=== PATIENT | female | born 1930 | race Caucasian/White ===

== ENCOUNTER 2019-04-06 14:06 | Emergency (ER) | payer MEDICARE, BC ==
[2019-04-06 14:31] VITALS: BP 148/70
--- NOTE | 2019-04-06 15:04 | UC ---
Dizzy HPI HPI Summary: C/O dizzy episodes starting this morning. Worse being upright. No SOB or Chest pain. More lightheaded, not spinning. Episodes last a few seconds, better sitting down or lying down. - History Of Current Complaint Chief Complaint: UCDizziness Stated Complaint: VERTIGO Time Seen by Provider: 04/06/19 14:35 Hx Obtained From: Patient Onset/Duration: Sudden Onset, Lasting Days - 1 Timing: Seconds - last a few seconds. Severity Initially: Mild Severity Currently: None Pain Intensity: 0 Character: Lightheaded, Weak, Dizzy Aggravating Factor(s): Position Change, Supine To Erect Alleviating Factor(s): Rest, Lying Down Associated Signs And Symptoms: Positive: Negative - Risk Factors Cardiac Risk Factors: Hypertension CVA Risk Factor: Hypertension, Prior CVA/TIA - Allergies/Home Medications Allergies/Adverse Reactions: Allergies Allergy/AdvReac Type Severity Reaction Status Date / Time meperidine [From Demerol] Allergy Hives Verified 04/06/19 14:18 Penicillins Allergy Hives Verified 04/06/19 14:18 Sulfa (Sulfonamide Allergy Hives Verified 04/06/19 14:18 Antibiotics) Home Medications: Home Medications Acetaminophen/Diphenhydramine [Tylenol Pm Ex-Strength Caplet] 2 each PO BEDTIME PRN 04/06/19 [History Confirmed 04/06/19] Apixaban* [Eliquis*] 2.5 mg PO BID 04/06/19 [History Confirmed 04/06/19] Cranberry Fruit Concentrate [Azo Cranberry] 500 mg PO DAILY 04/06/19 [History Confirmed 04/06/19] Levothyroxine Sodium [Levoxyl] 50 mcg PO DAILY 04/06/19 [History Confirmed 04/06] Lisinopril TAB* [Prinivil TAB 10 MG*] 40 mg PO DAILY 04/06/19 [History Confirmed 04/06/19] Nadolol TAB* [Corgard TAB*] 40 mg PO DAILY 04/06/19 [History Confirmed 04/06/19] Ropinirole TAB* [Requip TAB*] 0.25 mg PO DAILY 04/06/19 [History Confirmed 04/06] Solifenacin Succinate 5 mg PO DAILY 04/06/19 [History Confirmed 04/06/19] PMH/Surg Hx/FS Hx/Imm Hx Endocrine History: Hypothyroidism Cardiovascular History: Hypertension Neurological History: TIA, CVA - Surgical History Surgical History: Yes Surgery Procedure, Year, and Place: hysterectomy - Family History Known Family History: Positive: Hypertension Negative: Diabetes - Social History Occupation: Retired Lives: With Family Alcohol Use: None Substance Use Type: None Smoking Status (MU): Never Smoked Tobacco Review of Systems All Other Systems Reviewed And Are Negative: Yes Neurological: Positive: Other - Lightheaded Physical Exam Triage Information Reviewed: Yes Appearance: Well-Appearing, No Pain Distress, Well-Nourished Vital Signs: Initial Vital Signs Temp 97.7 F 04/06/19 14:22 Pulse 62 04/06/19 14:22 Resp 17 04/06/19 14:22 BP 148/70 04/06/19 14:22 Pulse Ox 99 04/06/19 14:22 Vital Signs Reviewed: Yes Eyes: Positive: Conjunctiva Clear ENT: Positive: Pharynx normal, TMs normal Neck exam: Normal Respiratory Exam: Normal Cardiovascular: Negative: RRR - irregularly irregular Neurological: Positive: Other: - left hemiplegia Psychological Exam: Normal Skin Exam: Normal Diagnostics - EKG Cardiac Rate: Bradycardia Cardiac Rhythm: AFib: New - unknown Ectopy: None ST Segment: Non-Specific Summary of EKG Findings: Atrial fibrillation vs A Flutter, ? NS ST changes. Dizzy Course/Dx - Differential Dx/Diagnosis Differential Diagnosis/HQI/PQRI: Benign Paroxysmal Positional Vertigo, Coronary Artery Disease, CVA, Hypovolemia, Myocardial Infarction Provider Diagnosis: Lightheadedness, Atrial fibrillation Discharge ED - Sign-Out/Discharge Documenting (check all that apply): Patient Departure All imaging exams completed and their final reports reviewed: No Studies - Discharge Plan Condition: Fair Disposition: HOME-RECOMMEND TO ED Patient Education Materials: A-fib (Atrial Fibrillation) (ED), Lightheadedness (ED) Referrals: Mariela Valerio PA [Primary Care Provider] - Additional Instructions: PLEASE GO STRAIGHT TO THE ER - Billing Disposition and Condition Condition: FAIR Disposition: Home-Recommend to ED
== END 2019-04-06 15:18 | disposition home health service (06) ==
LOC: UCCORT 14:06
DX: R42 Dizziness and giddiness (principal); I48.91 Unspecified atrial fibrillation; I69.954 Hemiplegia and hemiparesis following unspecified cerebrovascular disease affecting left non-dominant side; I10 Essential (primary) hypertension; E03.9 Hypothyroidism, unspecified; Z79.899 Other long term (current) drug therapy; Z88.8 Allergy status to other drugs, medicaments and biological substances; Z88.0 Allergy status to penicillin; Z88.2 Allergy status to sulfonamides
CPT/HCPCS: 93005; 99212; G0463